=== PATIENT | male | born 1970 | race American Indian/Alaskan Native ===

== ENCOUNTER 2017-07-07 23:09 | Emergency (ER) | payer OTHER ==
[2017-07-08] MEDS ORDERED: ZOFRAN ODT PO ONE (00:40)
[2017-07-08] MEDS ORDERED: ZOFRAN ODT ONE (00:44)
[2017-07-08 01:07] LABS: Basophils % (Auto) 0.4 % (0.0-1.8); Hemoglobin 16.9 gm/dl (11.8-15.2); Lymphocytes # (Auto) 0.9 K/mm3 (1.2-5.4); Lymphocytes % (Auto) 10.6 % (13.4-35.0); Mean Corpuscular HGB Conc 34 % (32-34); Mean Corpuscular Hemoglobin 33 pg (28-32); Mean Corpuscular Volume 95 fl (84-94); Monocytes # (Auto) 0.2 K/mm3 (0.0-0.8); Monocytes % (Auto) 2.6 % (0.0-7.3); Platelet Count 227 K/mm3 (140-440); Red Blood Count 5.16 M/mm3 (3.65-5.03)
[2017-07-08 01:30] LABS: Alanine Aminotransferase 18 units/L (7-56); Albumin 4.8 g/dL (3.9-5); BUN/Creatinine Ratio 21; Blood Urea Nitrogen 17 mg/dL (9-20); Calcium 9.5 mg/dL (8.4-10.2); Hemolysis Index 18
[2017-07-08 03:24] LABS: Bilirubin,Urine NEG (Negative); Blood,Urine NEG (Negative); Color,Urine Yellow (Yellow); Mucus,Urine FEW /HPF; Urobilinogen,Urine < 2.0 mg/dL (<2.0)
[2017-07-08] MEDS ORDERED: ZOFRAN IV ONE ×2 (07:15→09:07)
[2017-07-08] MEDS ORDERED: TYLENOL PO ONE (08:40)
[2017-07-08] MEDS ORDERED: MOTRIN PO ONE (08:40)
[2017-07-08] MEDS ORDERED: PHENERGAN PO ONE (08:40)
[2017-07-08] MEDS ORDERED: NACL 0.9% 1000 ML 1,000 ML IV ONE (08:58)
[2017-07-08] MEDS ORDERED: NACL 0.9% 500 ML 1,000 ML IV ONE (09:07)
[2017-07-08] MEDS ORDERED: TORADOL IV ONE (09:07)
[2017-07-08 10:01] VITALS: BP 143/78
--- NOTE | 2017-07-08 10:08 | Emergency Department Report ---
ED N/V/D HPI - General Chief complaint: Abdominal Pain Stated complaint: STOMACH PAIN Time Seen by Provider: 07/08/17 08:26 Source: patient Mode of arrival: Ambulatory Limitations: No Limitations - History of Present Illness Initial comments: Patient ate something yesterday that upset her stomach. Has had vomiting and diarrhea ever since. He came to the ER because people said he looked dehydrated. He has not been keeping anything down. He also is having abdominal cramping. - Related Data Previous Rx's Medication Instructions Recorded Last Taken Type Ondansetron [Zofran TAB] 4 mg PO Q8HR PRN #10 tablet 07/08/17 Unknown Rx Allergies Allergy/AdvReac Type Severity Reaction Status Date / Time No Known Allergies Allergy Unverified 07/08/17 00:43 ED Review of Systems ROS: Stated complaint: STOMACH PAIN Other details as noted in HPI Comment: All other systems reviewed and negative Gastrointestinal: abdominal pain, nausea, vomiting, diarrhea ED Past Medical Hx - Past Medical History Previous Medical History?: No - Surgical History Past Surgical History?: No - Social History Smoking Status: Never Smoker Substance Use Type: None - Medications Home Medications: Home Medications Medication Instructions Recorded Confirmed Last Taken Type Ondansetron [Zofran TAB] 4 mg PO Q8HR PRN #10 tablet 07/08/17 Unknown Rx ED Physical Exam - General Limitations: No Limitations General appearance: alert, in no apparent distress - Head Head exam: Present: atraumatic, normocephalic - Eye Eye exam: Present: normal appearance - ENT ENT exam: Present: mucous membranes moist - Neck Neck exam: Present: normal inspection - Respiratory Respiratory exam: Present: normal lung sounds bilaterally. Absent: respiratory distress - Cardiovascular Cardiovascular Exam: Present: regular rate, normal rhythm. Absent: systolic murmur, diastolic murmur, rubs, gallop - GI/Abdominal GI/Abdominal exam: Present: soft, tenderness (mild generalized tenderness) - Rectal Rectal exam: Present: deferred - Extremities Exam Extremities exam: Present: normal inspection, normal capillary refill - Back Exam Back exam: Present: normal inspection - Neurological Exam Neurological exam: Present: alert, oriented X3 - Psychiatric Psychiatric exam: Present: normal affect, normal mood - Skin Skin exam: Present: warm, dry, intact, normal color. Absent: rash ED Course Vital Signs 07/08/17 07/08/17 07/08/17 00:04 00:37 04:43 Temperature 99.0 F 99 F Pulse Rate 50 L 55 L Respiratory 18 18 Rate Blood Pressure 163/90 163/90 Blood Pressure [Left] O2 Sat by Pulse 98 100 96 Oximetry 07/08/17 07/08/17 07/08/17 04:45 04:50 04:51 Temperature 99.7 F H Pulse Rate Respiratory 18 Rate Blood Pressure 170/95 Blood Pressure [Left] O2 Sat by Pulse 97 99 Oximetry 07/08/17 07/08/17 07/08/17 05:00 05:15 05:30 Temperature Pulse Rate Respiratory Rate Blood Pressure 177/94 177/94 175/88 Blood Pressure [Left] O2 Sat by Pulse 94 95 95 Oximetry 07/08/17 07/08/17 07/08/17 05:45 06:01 06:15 Temperature Pulse Rate Respiratory Rate Blood Pressure 177/94 164/85 175/88 Blood Pressure [Left] O2 Sat by Pulse 94 97 96 Oximetry 07/08/17 07/08/17 06:30 10:00 Temperature Pulse Rate Respiratory 16 Rate Blood Pressure 175/88 Blood Pressure 143/78 [Left] O2 Sat by Pulse 95 100 Oximetry ED Medical Decision Making - Lab Data Result diagrams: 07/08/17 00:54 07/08/17 00:54 - Medical Decision Making 46-year-old male with no significant past medical history that presents with vomiting and diarrhea, and abdominal pain for the past 24 hours. Patient well- appearing. Vitals are stable. Lab work significant for hemoglobin of 17. Likely this is due to hemoconcentration. Patient was given IV fluids and symptom control here. He is able to tolerate oral intake. Patient will be given Zofran to go home with. He has been educated on the clear liquid diet. Clear to discharge. - Differential Diagnosis gastritis, gastroenteritis, appendicitis, cholecystitis, uti Critical care attestation.: If time is entered above; I have spent that time in minutes in the direct care of this critically ill patient, excluding procedure time. ED Disposition Clinical Impression: Gastroenteritis Disposition: DC-01 TO HOME OR SELFCARE Is pt being admited?: No Does the pt Need Aspirin: No Condition: Stable Instructions: Gastroenteritis (ED), Clear Liquid Diet (ED) Additional Instructions: Please follow the clear liquid diet for the next 24 hours. Instructions on this have been attached. Start taking 1000 mg tylenol every 6 hours for the next 3 days for your abdominal pain. Prescriptions: Ondansetron [Zofran TAB] 4 mg PO Q8HR PRN #10 tablet PRN Reason: Nausea Referrals: JUDITH GANDHI MD [Primary Care Provider] - 3-5 Days
== END 2017-07-08 10:30 | disposition home or self-care (01) ==
LOC: ED 23:09
DX: K52.9 Noninfective gastroenteritis and colitis, unspecified (principal)
CPT/HCPCS: 36415; 80053; 81001; 85025; 96361; 96374; 96375; 96376; 99283; J1885; J2405; J7030; Q0162; Q0169

== ENCOUNTER 2018-07-23 03:01 | Emergency (ER) | payer BC ==
[2018-07-23 03:31] LABS: Basophils % (Auto) 0.4 % (0.0-1.8); Eosinophils % (Auto) 0.1 % (0.0-4.3); Hematocrit 50.1 % (35.5-45.6); Hemoglobin 17.3 gm/dl (11.8-15.2); Lymphocytes # (Auto) 1.3 K/mm3 (1.2-5.4); Lymphocytes % (Auto) 11.6 % (13.4-35.0); Mean Corpuscular HGB Conc 35 % (32-34); Mean Corpuscular Volume 94 fl (84-94); Monocytes # (Auto) 0.7 K/mm3 (0.0-0.8); Platelet Count 231 K/mm3 (140-440); Red Blood Count 5.33 M/mm3 (3.65-5.03)
[2018-07-23 04:22] LABS: Alanine Aminotransferase 15 units/L (7-56); Albumin 4.9 g/dL (3.9-5); BUN/Creatinine Ratio 16; Blood Urea Nitrogen 18 mg/dL (9-20); Calcium 9.6 mg/dL (8.4-10.2); Hemolysis Index 21
[2018-07-23 05:29] LABS: Bilirubin,Urine NEG (Negative); Blood,Urine MOD (Negative); Color,Urine Yellow (Yellow); Mucus,Urine 3+ /HPF; Urobilinogen,Urine < 2.0 mg/dL (<2.0)
[2018-07-23] MEDS ORDERED: NACL 0.9% 1000 ML 1,000 ML IV ONE (06:19)
[2018-07-23] MEDS ORDERED: PEPCID IV ONE (06:19)
[2018-07-23] MEDS ORDERED: MORPHINE IV ONE (06:19)
[2018-07-23] MEDS ORDERED: ZOFRAN IV ONE (06:19)
--- NOTE | 2018-07-23 06:20 | Emergency Department Report ---
ED Abdominal Pain HPI - General Chief Complaint: Abdominal Pain Stated Complaint: VOMITING Time Seen by Provider: 07/23/18 06:04 Source: patient Mode of arrival: Ambulatory Limitations: No Limitations - History of Present Illness Initial Comments: This is a 47-year-old gentleman. The patient is not known to this provider previously. He reports that he does not currently have a primary care doctor. He denies a past medical history. He denies past history of abdominal surgeries. He presents to the emergency room with complaints of nausea, vomiting, abdominal pain. He reports that he consumes cannabis at least twice a day. He denies other toxic coingestions. He reports emesis was initially clear, yellow, and red. He denies bright red blood per rectum. He denies testicular pain. He denies irritative, obstructive urinary symptoms. He makes no complaint of headache, neck pain, chest pain. His abdominal pain is diffusely located in the lower abdominal region. It is left lower quadrant, right lower quadrant and suprapubic. It increases with palpation. It decreases with rest. The pain does not radiate anywhere.. MD Complaint: abdominal pain -: Gradual, hour(s) Location: LLQ, RLQ, suprapubic Radiation: none Severity: moderate Quality: cramping Consistency: intermittent Improves With: medication, rest Worsens With: movement Associated Symptoms: nausea, vomiting, diarrhea - Related Data Previous Rx's Medication Instructions Recorded Last Taken Type Ondansetron [Zofran Odt] 4 mg PO Q8HR PRN #10 tab.rapdis 06/12/18 Unknown Rx Dicyclomine [Bentyl] 10 mg PO QID PRN #20 capsule 07/23/18 Unknown Rx Famotidine [Pepcid] 20 mg PO BID #60 tablet 07/23/18 Unknown Rx Metoclopramide [Reglan] 10 mg PO QID PRN #30 tablet 07/23/18 Unknown Rx Promethazine [Phenergan SUPPOS] 50 mg MO Q6H PRN #15 supp.rect 07/23/18 Unknown Rx Allergies Allergy/AdvReac Type Severity Reaction Status Date / Time No Known Allergies Allergy Unverified 07/08/17 00:43 ED Review of Systems ROS: Stated complaint: VOMITING Other details as noted in HPI Constitutional: malaise. denies: fever Eyes: denies: eye discharge ENT: denies: epistaxis Respiratory: denies: cough Cardiovascular: denies: chest pain Gastrointestinal: abdominal pain, nausea, vomiting, diarrhea. denies: melena, hematochezia Genitourinary: denies: dysuria, frequency, testicular pain Musculoskeletal: denies: back pain Skin: denies: lesions Neurological: weakness Psychiatric: anxiety ED Past Medical Hx - Past Medical History Previous Medical History?: No - Surgical History Past Surgical History?: No - Social History Smoking Status: Never Smoker Substance Use Type: None - Medications Home Medications: Home Medications Medication Instructions Recorded Confirmed Last Taken Type Ondansetron [Zofran Odt] 4 mg PO Q8HR PRN #10 tab.rapdis 06/12/18 Unknown Rx Dicyclomine [Bentyl] 10 mg PO QID PRN #20 capsule 07/23/18 Unknown Rx Famotidine [Pepcid] 20 mg PO BID #60 tablet 07/23/18 Unknown Rx Metoclopramide [Reglan] 10 mg PO QID PRN #30 tablet 07/23/18 Unknown Rx Promethazine [Phenergan SUPPOS] 50 mg MO Q6H PRN #15 supp.rect 07/23/18 Unknown Rx ED Physical Exam - General Limitations: No Limitations General appearance: alert, anxious - Head Head exam: Present: atraumatic, normocephalic - Eye Eye exam: Present: normal appearance, EOMI. Absent: nystagmus - ENT ENT exam: Present: normal exam, normal orophraynx, mucous membranes moist, normal external ear exam - Neck Neck exam: Present: normal inspection, full ROM. Absent: tenderness, meningismus - Respiratory Respiratory exam: Present: normal lung sounds bilaterally. Absent: respiratory distress - Cardiovascular Cardiovascular Exam: Present: regular rate, normal rhythm, normal heart sounds. Absent: bradycardia, tachycardia, irregular rhythm, systolic murmur, diastolic murmur, rubs, gallop - GI/Abdominal GI/Abdominal exam: Present: soft, tenderness, other (is mild diffuse lower abdominal tenderness. There is no rebound, guarding or peritoneal sign.). A bsent: distended, guarding, rebound, rigid, pulsatile mass - Rectal Rectal exam: Present: deferred - Extremities Exam Extremities exam: Present: normal inspection, full ROM, other (2+ pulses noted in the bilateral upper, lower extremities. Compartments soft. No long bony tenderness. The pelvis is stable.). Absent: pedal edema, joint swelling, calf tenderness - Back Exam Back exam: Present: normal inspection, full ROM. Absent: tenderness, CVA tenderness (R) - Neurological Exam Neurological exam: Present: alert, other (Extraocular movements intact. Tongue midline. No facial droop. Facial sensation intact to light touch in the V1, V2, V3 distribution bilaterally. 5 and 5 strength in 4 extremities.. Sensation is intact to light touch in 4 extremities.). Absent: motor sensory deficit - Psychiatric Psychiatric exam: Present: normal affect, normal mood, anxious - Skin Skin exam: Present: warm, dry, intact, normal color. Absent: rash ED Course Vital Signs 07/23/18 07/23/18 07/23/18 03:07 05:18 06:48 Temperature 98.9 F 98.8 F Pulse Rate 100 H Respiratory 18 18 18 Rate Blood Pressure 147/82 O2 Sat by Pulse 99 Oximetry 07/23/18 07/23/18 07/23/18 07:52 08:00 08:30 Temperature Pulse Rate Respiratory Rate Blood Pressure 124/69 114/67 O2 Sat by Pulse 99 97 95 Oximetry 07/23/18 09:00 Temperature Pulse Rate Respiratory Rate Blood Pressure 124/69 O2 Sat by Pulse 95 Oximetry - Reevaluation(s) Reevaluation #1: 07/23/18 09:27 At the time of discharge, patient smiling, he reports that feels much better, and endorses motivation to discontinue cannabis consumption. ED Medical Decision Making - Lab Data Result diagrams: 07/23/18 03:15 07/23/18 03:15 Vital Signs 07/23/18 07/23/18 07/23/18 03:07 05:18 06:48 Temperature 98.9 F 98.8 F Pulse Rate 100 H Respiratory 18 18 18 Rate Blood Pressure 147/82 O2 Sat by Pulse 99 Oximetry 07/23/18 07/23/18 07/23/18 07:52 08:00 08:30 Temperature Pulse Rate Respiratory Rate Blood Pressure 124/69 114/67 O2 Sat by Pulse 99 97 95 Oximetry 07/23/18 09:00 Temperature Pulse Rate Respiratory Rate Blood Pressure 124/69 O2 Sat by Pulse 95 Oximetry Lab Results 07/23/18 07/23/18 07/23/18 Range/Units 03:15 03:15 05:18 WBC 11.3 H (4.5-11.0) K/mm3 RBC 5.33 H (3.65-5.03) M/mm3 Hgb 17.3 H (11.8-15.2) gm/dl Hct 50.1 H (35.5-45.6) % MCV 94 (84-94) fl MCH 33 H (28-32) pg MCHC 35 H (32-34) % RDW 13.0 L (13.2-15.2) % Plt Count 231 (140-440) K/mm3 Lymph % (Auto) 11.6 L (13.4-35.0) % [place] % (Auto) 6.0 (0.0-7.3) % Eos % (Auto) 0.1 (0.0-4.3) % Baso % (Auto) 0.4 (0.0-1.8) % Lymph # 1.3 (1.2-5.4) K/mm3 [place] # 0.7 (0.0-0.8) K/mm3 Eos # 0.0 (0.0-0.4) K/mm3 Baso # 0.0 (0.0-0.1) K/mm3 Seg Neutrophils % 81.9 H (40.0-70.0) % Seg Neutrophils # 9.3 H (1.8-7.7) K/mm3 Sodium 138 (137-145) mmol/L Potassium 3.5 L (3.6-5.0) mmol/L Chloride 96.3 L (98-107) mmol/L Carbon Dioxide 25 (22-30) mmol/L Anion Gap 20 mmol/L BUN 18 (9-20) mg/dL Creatinine 1.1 (0.8-1.5) mg/dL Estimated GFR > 60 ml/min BUN/Creatinine Ratio 16 % Glucose 131 H (75-100) mg/dL Calcium 9.6 (8.4-10.2) mg/dL Total Bilirubin 0.60 (0.1-1.2) mg/dL AST 24 (5-40) units/L ALT 15 (7-56) units/L Alkaline Phosphatase 52 (35-129) units/L Total Protein 7.8 (6.3-8.2) g/dL Albumin 4.9 (3.9-5) g/dL Albumin/Globulin Ratio 1.7 % Urine Color Yellow (Yellow) Urine Turbidity Slightly-cloudy (Clear) Urine pH 5.0 (5.0-7.0) Ur Specific Rush 1.026 (1.003-1.030) Urine Protein 100 mg/dl (Negative) mg/dL Urine Glucose (UA) Neg (Negative) mg/dL Urine Ketones Neg (Negative) mg/dL Urine Blood Mod (Negative) Urine Nitrite Neg (Negative) Urine Bilirubin Neg (Negative) Urine Urobilinogen < 2.0 (<2.0) mg/dL Ur Leukocyte Esterase Tr (Negative) Urine WBC (Auto) 23.0 H (0.0-6.0) /HPF Urine RBC (Auto) 3.0 (0.0-6.0) /HPF U Epithel Cells (Auto) 1.0 (0-13.0) /HPF Urine Mucus 3+ /HPF Urine Opiates Screen Urine Methadone Screen Ur Barbiturates Screen Ur Phencyclidine Scrn Ur Amphetamines Screen U Benzodiazepines Scrn Urine Cocaine Screen U Marijuana (THC) Screen Drugs of Abuse Note 07/23/18 Range/Units 05:18 WBC (4.5-11.0) K/mm3 RBC (3.65-5.03) M/mm3 Hgb (11.8-15.2) gm/dl Hct (35.5-45.6) % MCV (84-94) fl MCH (28-32) pg MCHC (32-34) % RDW (13.2-15.2) % Plt Count (140-440) K/mm3 Lymph % (Auto) (13.4-35.0) % [place] % (Auto) (0.0-7.3) % Eos % (Auto) (0.0-4.3) % Baso % (Auto) (0.0-1.8) % Lymph # (1.2-5.4) K/mm3 [place] # (0.0-0.8) K/mm3 Eos # (0.0-0.4) K/mm3 Baso # (0.0-0.1) K/mm3 Seg Neutrophils % (40.0-70.0) % Seg Neutrophils # (1.8-7.7) K/mm3 Sodium (137-145) mmol/L Potassium (3.6-5.0) mmol/L Chloride (98-107) mmol/L Carbon Dioxide (22-30) mmol/L Anion Gap mmol/L BUN (9-20) mg/dL Creatinine (0.8-1.5) mg/dL Estimated GFR ml/min BUN/Creatinine Ratio % Glucose (75-100) mg/dL Calcium (8.4-10.2) mg/dL Total Bilirubin (0.1-1.2) mg/dL AST (5-40) units/L ALT (7-56) units/L Alkaline Phosphatase (35-129) units/L Total Protein (6.3-8.2) g/dL Albumin (3.9-5) g/dL Albumin/Globulin Ratio % Urine Color (Yellow) Urine Turbidity (Clear) Urine pH (5.0-7.0) Ur Specific Rush (1.003-1.030) Urine Protein (Negative) mg/dL Urine Glucose (UA) (Negative) mg/dL Urine Ketones (Negative) mg/dL Urine Blood (Negative) Urine Nitrite (Negative) Urine Bilirubin (Negative) Urine Urobilinogen (<2.0) mg/dL Ur Leukocyte Esterase (Negative) Urine WBC (Auto) (0.0-6.0) /HPF Urine RBC (Auto) (0.0-6.0) /HPF U Epithel Cells (Auto) (0-13.0) /HPF Urine Mucus /HPF Urine Opiates Screen Presumptive negative Urine Methadone Screen Presumptive negative Ur Barbiturates Screen Presumptive negative Ur Phencyclidine Scrn Presumptive negative Ur Amphetamines Screen Presumptive negative U Benzodiazepines Scrn Presumptive negative Urine Cocaine Screen Presumptive negative U Marijuana (THC) Screen Presumptive positive Drugs of Abuse Note Disclamer - EKG Data -: EKG Interpreted by Tn EKG shows normal: sinus rhythm Rate: normal - EKG Data When compared to previous EKG there are: previous EKG unavailable 07/23/18 09:19 This is a normal sinus rhythm, 79 bpm, borderline rightward axis, high left ventricular voltage, atrial enlargement, intervals appear to be unremarkable, this is a nonspecific EKG, it is not consistent with an ST elevation myocardial infarction. - Radiology Data Radiology results: report reviewed, image reviewed Print Report Referring Physician: JUDITH JOY Patient Name: YAMILETH BECKFORD Date of : 1970 Sex: Male Report Date: 2018-07-23 Report Status: Finalized Findings [facility] [address] [place] [address] Cat Scan Report Signed Patient: YAMILETH BECKFORD MR#: [id number] : 1970 Acct:[id number] Age/Sex: 47 / M ADM Date: 07/23/18 Loc: ED Attending Dr: Ordering Physician: JUDITH JOY MD Date of Service: 07/23/18 Procedure(s): CT abdomen pelvis w con Accession Number(s): [id number] cc: JUDITH JOY MD CT ABDOMEN AND PELVIS WITH CONTRAST INDICATION: Lower abdominal pain, nausea, vomiting. Possible cannibinoid hyperemesis versus appendicitis. COMPARISON: 06/12/2018 CT. FINDINGS: Abdomen and pelvis CT performed following intravenous administration of 100 cc of Omnipaque 300. LUNG BASES: Stable slight cardiomegaly. Subtle 0.6 cm thickness pericardial thickening or fluid anteriorly as on axial series 2, image 12 may though be new. Nonspecific distal esophageal wall prominence/thickening, not excluded for gastroesophageal reflux and/or hiatal hernia, amongst others. Right hemidiaphragm again approximately 2 cm higher than the left. ABDOMEN: Multiple subcentimeter, indeterminate hepatic hypodensities towards the dome as on axial images 23-35, amongst others, the largest 0.7 cm on axial image 31 again noted. Right hepatic lobe 17.3 cm in midclavicular line. Otherwise unremarkable liver, spleen, gallbladder, nonane urysmal abdominal aorta with few atherosclerotic calcifications, IVC and kidneys. Diffuse bilateral adrenal enlargement/hyperplasia. No ascites or size significant adenopathy. Nonopacified GI tract evaluation limited, though grossly nonobstructive. Normal appendix. Mild hyperdense ascending colon content incidentally noted with usual stool burden. PELVIS: Unremarkable urinary bladder and nonopacified rectosigmoid. Grossly stable somewhat prominent seminal vesicles and prostate that may also be correlated for clinically and with PSA. No free fluid or size significant adenopathy. Mild multilevel spinal degenerative changes as spurring and few endplate irregularities, more so lower thoracic. Bilateral hip degenerative changes with acetabular hypertrophy/possible increased propensity for pincer type femoroacetabular impingement. Please correlate. CONCLUSION: No acute significant abdomen or p luciano CT abnormality with various other findings, as detailed above. Please correlate. Thank you for the opportunity to participate in this patient's care. Transcribed By: RS Dictated By: RON YORK MD Electronically Authenticated By: RON YORK MD Signed Date/Time: 07/23/18743 DD/ 7 TD/TT: 07/23/18743 - Medical Decision Making Differential diagnosis, including not limited to: GERD, gastritis, hiatal hernia, cyclic vomiting syndrome, narcotic bowel syndrome, inflammatory bowel disease, cannabinoid hyperemesis syndrome, irritable bowel syndrome Assessment and plan: 47-year-old gentleman with nausea and vomiting, possible components of Yoon-Lama tear, with daily cannabis consumption, likely cannabinoid hyperemesis syndrome. Patient treated with fluids, medications, and pain medications. He feels improved. He is tolerating liquid feeds. I have advised the patient to discontinue cannabis consumption. He will be discharged with nonnarcotic pain medication, nausea medication, and he will be instructed to follow-up with outpatient gastroenterology to complete his workup. Critical care attestation.: If time is entered above; I have spent that time in minutes in the direct care of this critically ill patient, excluding procedure time. ED Disposition Clinical Impression: Abdominal pain, History of nausea and vomiting Disposition: - TO HOME OR SELFCARE Is pt being admited?: No Does the pt Need Aspirin: No Condition: Good Instructions: Gastroenteritis (ED) Additional Instructions: As we discussed, symptoms likely coming from excessive cannabis consumption, likely causing cannabinoid hyperemesis syndrome. I recommend immediate discontinuation of cannabis, marijuana consumption. Avoid consumption of Motrin, ibuprofen, Naprosyn, Aleve, heavy, spicy foods. Advance diet as tolerated, take the pain medications as needed/directed, take Reglan medication as needed for nausea, vomiting, and if still having symptoms after Reglan, take the Phenergan suppository as recommended. I recommend that the patient follow up with a gastroenterology specialist within the next month for further evaluation. Avoid consumption of alcohol. Please return to the emergency room right away with new pain, worsening pain, migration of pain, projectile vomiting, change in mental status, confusion, inability to tolerate liquid feeds, new, worsening or different symptoms. Prescriptions: Dicyclomine [Bentyl] 10 mg PO QID PRN #20 capsule PRN Reason: Pain Famotidine [Pepcid] 20 mg PO BID #60 tablet Promethazine [Phenergan SUPPOS] 50 mg MO Q6H PRN #15 supp.rect PRN Reason: Nausea Metoclopramide [Reglan] 10 mg PO QID PRN #30 tablet PRN Reason: Nausea Referrals: [facility] [Provider Group] - 3-5 Days
[2018-07-23 06:44] LABS: Amphetamine Screen,Urine PRESUMPTIVE NEGATIVE; Benzodiazepines Screen,Urine PRESUMPTIVE NEGATIVE; Cocaine Screen,Urine PRESUMPTIVE NEGATIVE; Methadone Screen,Urine PRESUMPTIVE NEGATIVE; Opiate Screen,Urine PRESUMPTIVE NEGATIVE
[2018-07-23 07:14] LABS: Cannabinoid Screen,Urine PRESUMPTIVE POSITIVE
[2018-07-23] MEDS ORDERED: CARAFATE PO ONE (07:15)
[2018-07-23] MEDS ORDERED: TYLENOL PO ONE (07:15)
--- NOTE | 2018-07-23 07:44 | Cat Scan Report ---
CT ABDOMEN AND PELVIS WITH CONTRAST INDICATION: Lower abdominal pain, nausea, vomiting. Possible cannibinoid hyperemesis versus appendicitis. COMPARISON: 06/12/2018 CT. FINDINGS: Abdomen and pelvis CT performed following intravenous administration of 100 cc of Omnipaque 300. LUNG BASES: Stable slight cardiomegaly. Subtle 0.6 cm thickness pericardial thickening or fluid anteriorly as on axial series 2, image 12 may though be new. Nonspecific distal esophageal wall prominence/thickening, not excluded for gastroesophageal reflux and/or hiatal hernia, amongst others. Right hemidiaphragm again approximately 2 cm higher than the left. ABDOMEN: Multiple subcentimeter, indeterminate hepatic hypodensities towards the dome as on axial images 23-35, amongst others, the largest 0.7 cm on axial image 31 again noted. Right hepatic lobe 17.3 cm in midclavicular line. Otherwise unremarkable liver, spleen, gallbladder, nonaneurysmal abdominal aorta with few atherosclerotic calcifications, IVC and kidneys. Diffuse bilateral adrenal enlargement/hyperplasia. No ascites or size significant adenopathy. Nonopacified GI tract evaluation limited, though grossly nonobstructive. Normal appendix. Mild hyperdense ascending colon content incidentally noted with usual stool burden. PELVIS: Unremarkable urinary bladder and nonopacified rectosigmoid. Grossly stable somewhat prominent seminal vesicles and prostate that may also be correlated for clinically and with PSA. No free fluid or size significant adenopathy. Mild multilevel spinal degenerative changes as spurring and few endplate irregularities, more so lower thoracic. Bilateral hip degenerative changes with acetabular hypertrophy/possible increased propensity for pincer type femoroacetabular impingement. Please correlate. CONCLUSION: No acute significant abdomen or pelvis CT abnormality with various other findings, as detailed above. Please correlate. Thank you for the opportunity to participate in this patient's care.
[2018-07-23 09:08] VITALS: BP 124/69
== END 2018-07-23 09:45 | disposition home or self-care (01) ==
LOC: ED 03:01
DX: R10.32 Left lower quadrant pain (principal); R10.31 Right lower quadrant pain; R11.2 Nausea with vomiting, unspecified; R19.7 Diarrhea, unspecified
CPT/HCPCS: 36415; 74177; 80053; 80307; 81001; 85025; 93005; 93010; 96361; 96374; 96375; 99284; J2270; J2405; J7030; Q9967

== ENCOUNTER 2018-10-20 05:59 | Emergency (ER) | payer BC ==
[2018-10-20] MEDS ORDERED: ZOFRAN ODT ONE (06:22)
[2018-10-20 06:23] VITALS: BP 169/104
[2018-10-20] MEDS ORDERED: ZOFRAN ODT PO ONE (06:23)
[2018-10-20 06:50] LABS: Basophils % (Auto) 0.4 % (0.0-1.8); Hematocrit 45.7 % (35.5-45.6); Hemoglobin 15.7 gm/dl (11.8-15.2); Lymphocytes # (Auto) 1.1 K/mm3 (1.2-5.4); Lymphocytes % (Auto) 10.4 % (13.4-35.0); Mean Corpuscular HGB Conc 34 % (32-34); Mean Corpuscular Volume 95 fl (84-94); Monocytes # (Auto) 0.5 K/mm3 (0.0-0.8); Monocytes % (Auto) 4.4 % (0.0-7.3); Platelet Count 223 K/mm3 (140-440); Red Blood Count 4.82 M/mm3 (3.65-5.03)
[2018-10-20] MEDS ORDERED: ZOFRAN IV STA (07:03)
[2018-10-20] MEDS ORDERED: LEVSIN SL SL ONE (07:03)
[2018-10-20] MEDS ORDERED: NACL 0.9% 1000 ML 1,000 ML IV ONE (07:03)
--- NOTE | 2018-10-20 07:03 | Emergency Department Report ---
Blank Doc - Documentation Documentation: [id number] male, [facility] emerge department complaining of abdominal pain, nausea and vomiting started yesterday late afternoon. Around 12:00 known. He ate chicken nuggets and shortly after began to have some symptoms. His also was queasy, but she does not have the vomiting. He states he been vomiting some blood-tinged contents as well but no sylvie blood. He has 2-3 episodes of diarrhea since then diffuse stomach pain. Plan as And labs and give him some medication for his his discomfort. We'll evaluate him for diverticulitis as he does not feel these come in contact with any sick individuals or 4 reports
[2018-10-20 07:13] LABS: Alanine Aminotransferase 13 units/L (7-56); Albumin 4.7 g/dL (3.9-5); BUN/Creatinine Ratio 14; Blood Urea Nitrogen 14 mg/dL (9-20); Calcium 9.6 mg/dL (8.4-10.2); Hemolysis Index 16
[2018-10-20] MEDS ORDERED: MORPHINE IV ONE (07:40)
--- NOTE | 2018-10-20 07:40 | Emergency Department Report ---
ED Abdominal Pain HPI - General Chief Complaint: Abdominal Pain Stated Complaint: VOMITING Time Seen by Provider: 10/20/18 07:22 Source: patient Mode of arrival: Ambulatory Limitations: No Limitations - History of Present Illness Initial Comments: 48-year-old -[place] male presents to the emergency room for abdominal pain yesterday late afternoon approximately 12 PM. Patient reports that he ate the chicken nuggets A after that he started to nauseated vomited straight below and diarrhea. Patient reports that his had become queasy but has not vomited or had diarrhea. Patient denies any frothy blood in vomitus. MD Complaint: abdominal pain -: Last night Location: [facility] Radiation: none Migration to: no migration Severity scale (0 -10): 8 Quality: stabbing, aching Consistency: constant Context: possible food poisoning Associated Symptoms: nausea, vomiting, diarrhea - Related Data Previous Rx's Medication Instructions Recorded Last Taken Type Dicyclomine [Bentyl] 10 mg PO QID PRN #20 capsule 07/23/18 Unknown Rx Famotidine [Pepcid] 20 mg PO BID #60 tablet 07/23/18 Unknown Rx Metoclopramide [Reglan] 10 mg PO QID PRN #30 tablet 07/23/18 Unknown Rx Promethazine [Phenergan SUPPOS] 50 mg ME Q6H PRN #15 supp.rect 07/23/18 Unknown Rx Ciprofloxacin HCl [Ciprofloxacin 500 mg PO Q12HR 7 Days #14 tab 10/20/18 Unknown Rx TAB] Ondansetron [Zofran ODT TAB] 4 mg PO Q8HR PRN #10 tab.rapdis 10/20/18 Unknown Rx metroNIDAZOLE [Flagyl] 500 mg PO Q8HR 7 Days #21 tablet 10/20/18 Unknown Rx Allergies Allergy/AdvReac Type Severity Reaction Status Date / Time No Known Allergies Allergy Unverified 07/08/17 00:43 ED Review of Systems ROS: Stated complaint: VOMITING Other details as noted in HPI Comment: All other systems reviewed and negative ED Past Medical Hx - Past Medical History Previous Medical History?: No - Surgical History Past Surgical History?: No - Social History Smoking Status: Never Smoker Substance Use Type: None - Medications Home Medications: Home Medications Medication Instructions Recorded Confirmed Last Taken Type Dicyclomine [Bentyl] 10 mg PO QID PRN #20 capsule 07/23/18 Unknown Rx Famotidine [Pepcid] 20 mg PO BID #60 tablet 07/23/18 Unknown Rx Metoclopramide [Reglan] 10 mg PO QID PRN #30 tablet 07/23/18 Unknown Rx Promethazine [Phenergan SUPPOS] 50 mg ME Q6H PRN #15 supp.rect 07/23/18 Unknown Rx Ciprofloxacin HCl [Ciprofloxacin 500 mg PO Q12HR 7 Days #14 tab 10/20/18 Unknown Rx TAB] Ondansetron [Zofran ODT TAB] 4 mg PO Q8HR PRN #10 tab.rapdis 10/20/18 Unknown Rx metroNIDAZOLE [Flagyl] 500 mg PO Q8HR 7 Days #21 tablet 10/20/18 Unknown Rx ED Physical Exam - General Limitations: No Limitations General appearance: alert, in no apparent distress - Head Head exam: Present: atraumatic, normocephalic - Eye Eye exam: Present: normal appearance - ENT ENT exam: Present: mucous membranes moist - Neck Neck exam: Present: normal inspection - Respiratory Respiratory exam: Present: normal lung sounds bilaterally. Absent: respiratory distress - Cardiovascular Cardiovascular Exam: Present: regular rate, normal rhythm. Absent: systolic murmur, diastolic murmur, rubs, gallop - GI/Abdominal GI/Abdominal exam: Present: soft, normal bowel sounds - Rectal Rectal exam: Present: deferred - Extremities Exam Extremities exam: Present: normal inspection - Back Exam Back exam: Present: normal inspection - Neurological Exam Neurological exam: Present: alert, oriented X3 - Psychiatric Psychiatric exam: Present: normal affect, normal mood - Skin Skin exam: Present: warm, dry, intact, normal color. Absent: rash ED Course Vital Signs 10/20/18 06:13 Temperature 99.3 F Pulse Rate 67 Respiratory 20 Rate Blood Pressure 169/104 O2 Sat by Pulse 98 Oximetry ED Medical Decision Making - Lab Data Result diagrams: 10/20/18 06:39 10/20/18 06:39 - Radiology Data Radiology results: report reviewed Patient: YAMILETH BECKFORD MR#: [id number] : 1970 Acct:[id number] Age/Sex: 48 / M ADM Date: 10/20/18 Loc: ED Attending Dr: Ordering Physician: BENJAMIN RENEE Date of Service: 07/29/19 Procedure(s): CT abdomen pelvis w con Accession Number(s): [id number] cc: BENJAMIN RENEE CT ABDOMEN AND PELVIS WITH CONTRAST HISTORY: Lower ABD Pain COMPARISON: None. TECHNIQUE: Axial CT images were obtained through the abdomen and pelvis after 10 0 cc of Omnipaque 300 intravenously. Sagittal and coronal reformatted images. All CT scans at this location are perfo rmed using CT dose reduction for ALARA by means of automated exposure control. FINDINGS: CT ABDOMEN: Lung Bases: Clear. Liver: No significant abnormality. There are a few tiny cysts in the anterior liver measuring up to 1 cm. Biliary: No significant abnormality. Spleen: No significant abnormality. Unenlarged. Pancreas: No significant abnormality. Adrenals: No significant abnormality. Kidneys: No significant abnormality. Lymphatics: No lymphadenopathy. Vasculature: No significant abnormality. Minimal calcific plaques are noted in the distal aorta and proximal common iliac arteries Bowel/Peritoneum: There is a focal area of mild circumferential thickening in t he sigmoid colon. There are a few diverticula identified in this area. No evidence for advanced inflammation, abscess or free air. Normal appendix. CT PELVIS: : No significant abnormality. Osseous Structures: No significant abnormality. Additional Findings: None IMPRESSION: Focal area of circumferential thickening in the sigmoid colon with minimal diverticulosis. Consider a very early diverticulitis or focal colitis. Signer Name: Marcelo Diallo Jr, MD Signed: 10/20/2018 8:24 AM Workstation Name: [id number] Transcribed By: TTR Dictated By: MARCELO DIALLO JR, MD Electronically Authenticated By: MARCELO DIALLO JR, MD Signed Date/Time: 10/20/18823 DD/ 7 TD/TT: - Medical Decision Making 48-year-old -[place] male presents to the emergency room for abdominal pain yesterday late afternoon approximately 12 PM. Patient reports that he ate the chicken nuggets A after that he started to nauseated vomited straight below and diarrhea. Patient reports that his had become queasy but has not vomited or had diarrhea. Patient denies any frothy blood in vomitus. CT comes back with thickening of the colon with possible diverticulosis consider early diverticulitis. Patient will be treated with Flagyl and Cipro. Patient referred to GI. Critical care attestation.: If time is entered above; I have spent that time in minutes in the direct care of this critically ill patient, excluding procedure time. ED Disposition Clinical Impression: Colitis Disposition: DC-01 TO HOME OR SELFCARE Is pt being admited?: No Does the pt Need Aspirin: No Condition: Stable Instructions: Infectious Colitis (ED) Additional Instructions: Complete antibiotics as prescribed. Take Zofran as needed for nausea and vomiting. Follow up with her society reporter specialist are listed one below for your convenience. Prescriptions: Ciprofloxacin HCl [Ciprofloxacin TAB] 500 mg PO Q12HR 7 Days #14 tab metroNIDAZOLE [Flagyl] 500 mg PO Q8HR 7 Days #21 tablet Ondansetron [Zofran ODT TAB] 4 mg PO Q8HR PRN #10 tab.rapdis PRN Reason: Vomiting Referrals: [facility] [Provider Group] - 3-5 Days Forms: Work/School Release Form(ED), Accompanied Note
--- NOTE | 2018-10-20 08:29 | Cat Scan Report ---
CT ABDOMEN AND PELVIS WITH CONTRAST HISTORY: Lower ABD Pain COMPARISON: None. TECHNIQUE: Axial CT images were obtained through the abdomen and pelvis after 100 cc of Omnipaque 300 intravenously. Sagittal and coronal reformatted images. All CT scans at this location are performed using CT dose reduction for ALARA by means of automated exposure control. FINDINGS: CT ABDOMEN: Lung Bases: Clear. Liver: No significant abnormality. There are a few tiny cysts in the anterior liver measuring up to 1 cm. Biliary: No significant abnormality. Spleen: No significant abnormality. Unenlarged. Pancreas: No significant abnormality. Adrenals: No significant abnormality. Kidneys: No significant abnormality. Lymphatics: No lymphadenopathy. Vasculature: No significant abnormality. Minimal calcific plaques are noted in the distal aorta and p roximal common iliac arteries Bowel/Peritoneum: There is a focal area of mild circumferential thickening in the sigmoid colon. Ther e are a few diverticula identified in this area. No evidence for advanced inflammation, abscess or fr ee air. Normal appendix. CT PELVIS: : No significant abnormality. Osseous Structures: No significant abnormality. Additional Findings: None IMPRESSION: Focal area of circumferential thickening in the sigmoid colon with minimal diverticulosis. Consider a very early diverticulitis or focal colitis. Signer Name: Marcelo Virgen Jr, MD Signed: 10/20/2018 8:24 AM Workstation Name: [id number]
== END 2018-10-20 09:24 | disposition home or self-care (01) ==
LOC: ED 05:59
DX: K52.9 Noninfective gastroenteritis and colitis, unspecified (principal); Z79.899 Other long term (current) drug therapy
CPT/HCPCS: 36415; 74177; 80053; 83690; 85025; 96361; 96374; 96375; 99284; J2270; J2405; J7030; Q9967; Q0162

== ENCOUNTER 2019-02-23 17:21 | Emergency (ER) | payer BC ==
[2019-02-23] MEDS ORDERED: ONDANSETRON 4 MG ODT TAB PO ONE (17:42)
--- NOTE | 2019-02-23 17:42 | Emergency Department Report ---
Blank Doc - Documentation Documentation: 48-year-old male that presents with abdominal pain with n/v. This initial assessment/diagnostic orders/clinical plan/treatment(s) is/are subject to change based on patient's health status, clinical progression and re- assessment by fellow clinical providers in the ED. Further treatment and workup at subsequent clinical providers discretion. Patient/guardians urged not to elope from the ED as their condition may be serious if not clinically assessed and managed. Initial orders include: 1- Patient sent to [facility] for further evaluation and treatment 2- labs 3- UA
[2019-02-23] MEDS ORDERED: ONDANSETRON 4 MG ODT TAB ONE (17:44)
[2019-02-23 19:02] LABS: Basophils % (Auto) 0.4 % (0.0-1.8); Hematocrit 47.1 % (35.5-45.6); Hemoglobin 16.2 gm/dl (11.8-15.2); Lymphocytes % (Auto) 10.1 % (13.4-35.0); Mean Corpuscular HGB Conc 34 % (32-34); Mean Corpuscular Volume 95 fl (84-94); Monocytes # (Auto) 0.4 K/mm3 (0.0-0.8); Monocytes % (Auto) 4.4 % (0.0-7.3); Platelet Count 229 K/mm3 (140-440); Red Blood Count 4.97 M/mm3 (3.65-5.03); Red Cell Distribution Width 12.6 % (13.2-15.2)
[2019-02-23 19:54] LABS: Alanine Aminotransferase 13 units/L (7-56); BUN/Creatinine Ratio 12; Blood Urea Nitrogen 12 mg/dL (9-20); Calcium 9.8 mg/dL (8.4-10.2); Hemolysis Index 31
[2019-02-23 21:21] LABS: Bilirubin,Urine NEG (Negative); Color,Urine Yellow (Yellow)
[2019-02-23 21:22] LABS: Blood,Urine SM (Negative); Mucus,Urine 1+ /HPF
[2019-02-23] MEDS ORDERED: SODIUM CHLORIDE 0.9% 1000 ML 1,000 ML IV ONE ×2 (21:44)
[2019-02-23] MEDS ORDERED: MORPHINE 4 MG/1 ML INJ IV ONE (21:45)
[2019-02-23] MEDS ORDERED: LORazepam 2 MG/ML VIAL IV ONE (21:45)
[2019-02-23] MEDS ORDERED: ONDANSETRON 4 MG/2 ML INJ IV ONE (21:45)
--- NOTE | 2019-02-23 21:52 | Emergency Department Report ---
ED Abdominal Pain HPI - General Chief Complaint: Abdominal Pain Stated Complaint: VOMIT Time Seen by Provider: 02/23/19 17:41 Source: patient Mode of arrival: Ambulatory Limitations: No Limitations - History of Present Illness Initial Comments: Mr. Benton is a 48 yo male with hx of marijuana use who presents with abdominal pain and vomiting for the past 2 days. Has had 5 ED visits over the course of 1.5 years to this ER for similar symptoms according to EMR. PRevious diagnoses include IBS, cannabinoid hyperemesis syndrome, diverticulitis. He co ntinues to smoke marijuana daily. He has central sharp achy crampy 8 out of 10 abdominal pain without radiation. He has severe nausea vomiting. No other significant past medical history. No known history of hypertension or diabetes. His significant other is at the bedside. She provided additional medical history. When he was diagnosed with diverticulitis in September, the prescription was lost. His symptoms resolved without antibiotic therapy. 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 According to electronic medical record he has had 3 CT scans of the abdomen and pelvis this year. The first 2 studies did not reveal any acute findings. The third most recent CT scan revealed focal small area of possible colitis versus diverticulitis. MD Complaint: abdominal pain -: Gradual, days(s) (2) Location: diffuse Radiation: none Severity: severe Severity scale (0 -10): 8 Quality: cramping, aching Consistency: constant Improves With: nothing Worsens With: nothing Context: other (5 ED visits for recurrent abdominal pain since June 2017) Associated Symptoms: nausea, vomiting - Related Data Previous Rx's Medication Instructions Recorded Last Taken Type Dicyclomine [Bentyl] 10 mg PO QID PRN #20 capsule 07/23/18 Unknown Rx Famotidine [Pepcid] 20 mg PO BID #60 tablet 07/23/18 Unknown Rx Metoclopramide [Reglan] 10 mg PO QID PRN #30 tablet 07/23/18 Unknown Rx Promethazine [Phenergan SUPPOS] 50 mg DC Q6H PRN #15 supp.rect 07/23/18 Unknown Rx Ciprofloxacin HCl [Ciprofloxacin 500 mg PO Q12HR 7 Days #14 tab 10/20/18 Unknown Rx TAB] Ondansetron [Zofran ODT TAB] 4 mg PO Q8HR PRN #10 tab.rapdis 10/20/18 Unknown Rx metroNIDAZOLE [Flagyl] 500 mg PO Q8HR 7 Days #21 tablet 10/20/18 Unknown Rx Promethazine [Phenergan] 25 mg PO Q6HR PRN #10 tab 02/24/19 Unknown Rx Allergies Allergy/AdvReac Type Severity Reaction Status Date / Time No Known Allergies Allergy Unverified 07/08/17 00:43 ED Review of Systems ROS: Stated complaint: VOMIT Other details as noted in HPI Comment: All other systems reviewed and negative Constitutional: denies: fever, malaise Cardiovascular: denies: chest pain Gastrointestinal: abdominal pain, nausea, vomiting ED Past Medical Hx - Past Medical History Previous Medical History?: No - Surgical History Past Surgical History?: No - Social History Smoking Status: Never Smoker Substance Use Type: Marijuana - Medications Home Medications: Home Medications Medication Instructions Recorded Confirmed Last Taken Type Dicyclomine [Bentyl] 10 mg PO QID PRN #20 capsule 07/23/18 Unknown Rx Famotidine [Pepcid] 20 mg PO BID #60 tablet 07/23/18 Unknown Rx Metoclopramide [Reglan] 10 mg PO QID PRN #30 tablet 07/23/18 Unknown Rx Promethazine [Phenergan SUPPOS] 50 mg DC Q6H PRN #15 supp.rect 07/23/18 Unknown Rx Ciprofloxacin HCl [Ciprofloxacin 500 mg PO Q12HR 7 Days #14 tab 10/20/18 Unknown Rx TAB] Ondansetron [Zofran ODT TAB] 4 mg PO Q8HR PRN #10 tab.rapdis 10/20/18 Unknown Rx metroNIDAZOLE [Flagyl] 500 mg PO Q8HR 7 Days #21 tablet 10/20/18 Unknown Rx Promethazine [Phenergan] 25 mg PO Q6HR PRN #10 tab 02/24/19 Unknown Rx ED Physical Exam - General Limitations: No Limitations General appearance: alert, in no apparent distress, other (appears uncomfortable appears in pain) - Head Head exam: Present: atraumatic, normocephalic - Eye Eye exam: Present: normal appearance - ENT ENT exam: Present: mucous membranes dry - Neck Neck exam: Present: normal inspection, full ROM - Respiratory Respiratory exam: Present: normal lung sounds bilaterally. Absent: respiratory distress, wheezes - Cardiovascular Cardiovascular Exam: Present: regular rate, normal rhythm, normal heart sounds. Absent: systolic murmur, diastolic murmur, rubs, gallop - GI/Abdominal GI/Abdominal exam: Present: soft, normal bowel sounds. Absent: distended, tenderness, guarding - Rectal Rectal exam: Present: deferred - Extremities Exam Extremities exam: Present: normal inspection - Neurological Exam Neurological exam: Present: alert, oriented X3 - Psychiatric Psychiatric exam: Present: normal affect, normal mood - Skin Skin exam: Present: warm, dry, intact, normal color. Absent: rash ED Course Vital Signs 02/23/19 02/23/19 02/23/19 17:40 21:05 22:00 Temperature 98.6 F 99.2 F Pulse Rate 68 56 L 52 L Respiratory 20 16 14 Rate Blood Pressure 118/49 177/98 Blood Pressure 166/70 [Left] O2 Sat by Pulse 100 100 100 Oximetry 02/23/19 02/23/19 02/23/19 22:07 22:16 22:37 Temperature Pulse Rate 54 L Respiratory 18 20 18 Rate Blood Pressure 156/78 Blood Pressure [Left] O2 Sat by Pulse 96 Oximetry 02/23/19 02/23/19 23:16 23:30 Temperature Pulse Rate 61 57 L Respiratory 25 H 24 Rate Blood Pressure 168/76 156/81 Blood Pressure [Left] O2 Sat by Pulse 97 97 Oximetry ED Medical Decision Making - Lab Data Result diagrams: 02/23/19 18:11 02/23/19 18:11 Laboratory Results - last 24 hr 02/23/19 02/23/19 02/23/19 18:11 18:11 20:55 WBC 10.2 RBC 4.97 Hgb 16.2 H Hct 47.1 H MCV 95 H MCH 33 H MCHC 34 RDW 12.6 L Plt Count 229 Lymph % (Auto) 10.1 L [place] % (Auto) 4.4 Eos % (Auto) 0.0 Baso % (Auto) 0.4 Lymph # 1.0 L [place] # 0.4 Eos # 0.0 Baso # 0.0 Seg Neutrophils % 85.1 H Seg Neutrophils # 8.7 H Sodium 142 Potassium 4.4 Chloride 102.7 Carbon Dioxide 25 Anion Gap 19 BUN 12 Creatinine 1.0 Estimated GFR > 60 BUN/Creatinine Ratio 12 Glucose 108 H Calcium 9.8 Total Bilirubin 0.80 AST 20 ALT 13 Alkaline Phosphatase 55 Total Protein 7.3 Albumin 5.0 Albumin/Globulin Ratio 2.2 Lipase 10 L Urine Color Yellow Urine Turbidity Clear Urine pH 7.0 Ur Specific [place] 1.018 Urine Protein 100 mg/dl Urine Glucose (UA) Neg Urine Ketones 80 Urine Blood Sm Urine Nitrite Neg Urine Bilirubin Neg Urine Urobilinogen 2.0 Ur Leukocyte Esterase Tr Urine WBC (Auto) 7.0 H Urine RBC (Auto) 7.0 U Epithel Cells (Auto) 1.0 Urine Mucus 1+ - Medical Decision Making Mr. Benton presents with abdominal pain: No evidence of peritonitis or dissection on clinical exam today. Differential diagnosis includes IBS, cannabinoid hyperemesis syndrome, PUD Obvious dehydration with lab studies obtained: Hemoconcentration with increase hemoglobin and hematocrit, ketonuria on urinalysis Critical care attestation.: If time is entered above; I have spent that time in minutes in the direct care of this critically ill patient, excluding procedure time. ED Disposition Clinical Impression: Abdominal pain, Dehydration Disposition: DC-01 TO HOME OR SELFCARE Is pt being admited?: No Does the pt Need Aspirin: No Condition: Stable Instructions: Abdominal Pain (ED), Dehydration (ED) Prescriptions: Promethazine [Phenergan] 25 mg PO Q6HR PRN #10 tab PRN Reason: Nausea Referrals: BRAD MAZARIEGOS MD [Staff Physician] - 3-5 Days Forms: Work/School Release Form(ED), Accompanied Note
[2019-02-24 03:53] VITALS: BP 146/71
== END 2019-02-24 00:40 | disposition home or self-care (01) ==
LOC: ED 17:21
DX: E86.0 Dehydration (principal); F12.10 Cannabis abuse, uncomplicated; Z79.899 Other long term (current) drug therapy
CPT/HCPCS: 36415; 80053; 81001; 83690; 85025; 96361; 96374; 96375; 99283; J2060; J2270; J2405; J7030; Q0162

== ENCOUNTER 2020-11-17 14:27 | Emergency (ER) | payer SELFPAY ==
[2020-11-17] MEDS ORDERED: ONDANSETRON 4 MG/2 ML INJ IM ONE (16:14)
--- NOTE | 2020-11-17 16:14 | Event Note ---
ED Screening Note ED Screening Note: vomiting/diarrhea that began last night abd cramping no fever no sick contact no recent abx no water from different source or camping has had symptoms before +former marijuana PMHx none no allergies to meds This initial assessment/diagnostic orders/clinical plan/treatment(s) is/are subject to change based on patients health status, clinical progression and re- assessment by fellow clinical providers in the ED. Further treatment and workup at subsequent clinical providers discretion. Patient/guardian urged not to elope from the ED as their condition may be serious if not clinically assessed and managed. Initial orders include: labs, urine, zofran
[2020-11-17 17:23] LABS: Alanine Aminotransferase 21 units/L (7-56); Albumin 4.8 g/dL (3.9-5); BUN/Creatinine Ratio 16; Blood Urea Nitrogen 19 mg/dL (9-20); Calcium 9.7 mg/dL (8.4-10.2); Hemolysis Index 16
[2020-11-17 17:28] LABS: Basophils % (Auto) 0.5 % (0.0-1.8); Hematocrit 51.9 % (35.5-45.6); Hemoglobin 17.9 gm/dl (11.8-15.2); Lymphocytes # (Auto) 0.9 K/mm3 (1.2-5.4); Lymphocytes % (Auto) 26.7 % (13.4-35.0); Mean Corpuscular HGB Conc 34 % (32-34); Mean Corpuscular Volume 97 fl (84-94); Monocytes # (Auto) 0.5 K/mm3 (0.0-0.8); Monocytes % (Auto) 13.5 % (0.0-7.3); Platelet Count 193 K/mm3 (140-440); Red Blood Count 5.33 M/mm3 (3.65-5.03); Red Cell Distribution Width 13.3 % (13.2-15.2)
--- NOTE | 2020-11-17 19:44 | Emergency Department Report ---
ED N/V/D HPI - General Chief complaint: Nausea/Vomiting/Diarrhea Stated complaint: VOMITING Time Seen by Provider: 11/17/20 16:13 Source: patient Mode of arrival: Ambulatory Limitations: No Limitations - History of Present Illness Initial comments: Patient is a 50-year-old -[place] male with no past medical history presents to the ED with complaint of acute onset persistent diffuse abdominal pain, nausea and vomiting with diarrhea last 24 hours intermittently. Patient states that he may have consumed spoiled food over 24 hours ago onset having the symptoms persistently 24 hours ago, worse in the last 12 hours. Patient states that he has several to 6 or 7 episodes of nausea and vomiting and diarrhea. Patient states that no one else at home is had similar symptoms. Patient denies dizziness, syncope, fever, chills, chest pain or shortness of breath, cough, sore throat, nasal and sinus congestion, dysuria, urinary frequency and urgency, testicular pain or penile discharge. MD complaint: nausea, vomiting, diarrhea, abdominal pain (diffuse) -: Sudden, hour(s) (24) Description of Vomiting: watery, bilious Description of Diarrhea: water Associated Abdominal Pain: Yes (diffuse) Location: diffuse Radiation: none Severity: moderate Pain Scale: 4 Quality: cramping, aching Consistency: intermittent Improves with: none Worsens with: eating, vomiting Context: possible food poisoning Associated Symptoms: denies other symptoms, loss of appetite, malaise, nausea /vomiting. denies: myalgias, chest pain, cough, diaphoresis, fever/chills, headaches, rash, dysuria, shortness of breath, syncope, weakness, other - Related Data Previous Rx's Medication Instructions Recorded Last Taken Type Dicyclomine [Bentyl] 10 mg PO QID PRN #20 capsule 07/23/18 Unknown Rx Famotidine [Pepcid] 20 mg PO BID #60 tablet 07/23/18 Unknown Rx Metoclopramide [Reglan] 10 mg PO QID PRN #30 tablet 07/23/18 Unknown Rx Promethazine [Phenergan SUPPOS] 50 mg VT Q6H PRN #15 supp.rect 07/23/18 Unknown Rx Ciprofloxacin HCl [Ciprofloxacin 500 mg PO Q12HR 7 Days #14 tab 10/20/18 Unknown Rx TAB] metroNIDAZOLE [Flagyl] 500 mg PO Q8HR 7 Days #21 tablet 10/20/18 Unknown Rx Promethazine [Phenergan] 25 mg PO Q6HR PRN #10 tab 02/24/19 Unknown Rx Famotidine [Pepcid] 20 mg PO BID #60 tablet 11/17/20 Unknown Rx Ondansetron [Zofran ODT TAB] 4 mg PO Q6HR PRN #20 tab.rapdis 11/17/20 Unknown Rx Dicyclomine [Bentyl] 20 mg PO Q6H PRN #30 tablet 11/18/20 Unknown Rx Allergies Allergy/AdvReac Type Severity Reaction Status Date / Time No Known Allergies Allergy Verified 11/17/20 15:32 ED Review of Systems ROS: Stated complaint: VOMITING Other details as noted in HPI Constitutional: chills, malaise, weakness. denies: fever Eyes: denies: eye pain, eye discharge, vision change ENT: denies: ear pain, throat pain Respiratory: denies: cough, shortness of breath, wheezing Cardiovascular: denies: chest pain, palpitations Endocrine: no symptoms reported Gastrointestinal: abdominal pain (diffuse), nausea, vomiting, diarrhea Genitourinary: denies: urgency, dysuria Musculoskeletal: denies: back pain, joint swelling, arthralgia Skin: denies: rash, lesions Neurological: denies: headache, weakness, paresthesias Psychiatric: denies: anxiety, depression Hematological/Lymphatic: denies: easy bleeding, easy bruising ED Past Medical Hx - Past Medical History Previous Medical History?: No - Surgical History Past Surgical History?: No - Social History Smoking Status: Never Smoker Substance Use Type: Marijuana - Medications Home Medications: Home Medications Medication Instructions Recorded Confirmed Last Taken Type Dicyclomine [Bentyl] 10 mg PO QID PRN #20 capsule 07/23/18 Unknown Rx Famotidine [Pepcid] 20 mg PO BID #60 tablet 07/23/18 Unknown Rx Metoclopramide [Reglan] 10 mg PO QID PRN #30 tablet 07/23/18 Unknown Rx Promethazine [Phenergan SUPPOS] 50 mg VT Q6H PRN #15 supp.rect 07/23/18 Unknown Rx Ciprofloxacin HCl [Ciprofloxacin 500 mg PO Q12HR 7 Days #14 tab 10/20/18 Unknown Rx TAB] metroNIDAZOLE [Flagyl] 500 mg PO Q8HR 7 Days #21 tablet 10/20/18 Unknown Rx Promethazine [Phenergan] 25 mg PO Q6HR PRN #10 tab 02/24/19 Unknown Rx Famotidine [Pepcid] 20 mg PO BID #60 tablet 11/17/20 Unknown Rx Ondansetron [Zofran ODT TAB] 4 mg PO Q6HR PRN #20 tab.rapdis 11/17/20 Unknown Rx Dicyclomine [Bentyl] 20 mg PO Q6H PRN #30 tablet 11/18/20 Unknown Rx ED Physical Exam - General Limitations: No Limitations General appearance: alert, in no apparent distress - Head Head exam: Present: atraumatic, normocephalic, normal inspection - Eye Eye exam: Present: normal appearance, PERRL, EOMI Pupils: Present: normal accommodation - ENT ENT exam: Present: normal exam, normal orophraynx, mucous membranes moist, TM's normal bilaterally, normal external ear exam - Neck Neck exam: Present: normal inspection, full ROM - Respiratory Respiratory exam: Present: normal lung sounds bilaterally. Absent: respiratory distress, wheezes, rales, rhonchi, chest wall tenderness, accessory muscle use, decreased breath sounds, prolonged expiratory - Cardiovascular Cardiovascular Exam: Present: normal rhythm, bradycardia, normal heart sounds. Absent: systolic murmur, diastolic murmur, rubs, gallop - GI/Abdominal GI/Abdominal exam: Present: soft, tenderness (Palpable mild diffuse abdominal tenderness), hyperactive bowel sounds. Absent: guarding, rebound, rigid, hypoactive bowel sounds - Extremities Exam Extremities exam: Present: normal inspection, full ROM, normal capillary refill - Back Exam Back exam: Present: normal inspection, full ROM. Absent: tenderness, CVA tenderness (R), CVA tenderness (L), muscle spasm, paraspinal tenderness, vertebral tenderness, rash noted - Neurological Exam Neurological exam: Present: alert, oriented X3, CN II-XII intact, normal gait, reflexes normal - Psychiatric Psychiatric exam: Present: normal affect, normal mood - Skin Skin exam: Present: warm, dry, intact, normal color. Absent: rash ED Course Vital Signs 11/17/20 11/17/20 11/17/20 15:33 20:22 20:30 Temperature 98.9 F Pulse Rate 53 L 44 L 45 L Respiratory 20 20 16 Rate Blood Pressure 146/84 O2 Sat by Pulse 100 99 99 Oximetry 11/17/20 11/17/20 11/17/20 20:48 21:00 21:16 Temperature Pulse Rate 48 L 48 L 47 L Respiratory 18 17 Rate Blood Pressure 106/62 96/58 106/62 O2 Sat by Pulse 99 97 98 Oximetry 11/17/20 11/17/20 11/17/20 21:30 21:46 22:00 Temperature Pulse Rate 48 L 47 L 52 L Respiratory 18 16 17 Rate Blood Pressure 109/67 109/67 93/55 O2 Sat by Pulse 98 99 98 Oximetry 11/17/20 11/17/20 11/17/20 22:16 22:30 22:46 Temperature Pulse Rate 51 L 49 L 47 L Respiratory 18 18 23 Rate Blood Pressure 93/55 102/61 102/61 O2 Sat by Pulse 98 98 96 Oximetry 11/17/20 23:00 Temperature Pulse Rate 48 L Respiratory 19 Rate Blood Pressure 111/69 O2 Sat by Pulse 95 Oximetry ED Medical Decision Making - Lab Data Result diagrams: 11/17/20 16:38 11/17/20 16:38 - Radiology Data Radiology results: report reviewed, image reviewed [facility] [address] [place] [address] Cat Scan Report Signed Patient: YAMILETH BECKFORD MR#: [id number] : 1970 Acct:[id number] Age/Sex: 50 / M ADM Date: 11/17/20 Loc: ED Attending Dr: Ordering Physician: BENJAMIN LAYTON Date of Service: 11/17/20 Procedure(s): CT abdomen pelvis w con Accession Number(s): [id number] cc: BENJAMIN LAYTON CT ABDOMEN AND PELVIS WITH CONTRAST INDICATION / CLINICAL INFORMATION: RLQ abdominal pain [id number] 100ml. TECHNIQUE: Axial CT images were obtained through the abdomen and pelvis after 100 mL's of Omnipaque [address] scans at this location are performed using CT dose reduction for ALARA by means of automated exposure control. COMPARISON: None available. FINDINGS: LOWER CHEST: No significant abnormality. AORTA / ARTERIES: Mild atherosclerotic calcification without acute abnormality. IVC / VEINS: No significant abnormality. LYMPH NODES: No significant adenopathy. COLON: No significant abnormality. APPENDIX: No significant abnormality. STOMACH / SMALL BOWEL: No significant abnormality. PERITONEUM: No free fluid. No free air. No fluid collection. LIVER: There are multiple hypoattenuating lesions scattered throughout the liver with the majority of the lesions measuring less than 1 cm which are too small for complete characterization and likely represent simple hepatic cysts. GALLBLADDER: No significant abnormality. BILE DUCTS: No significant abnormality. PANCREAS: There is mild prominence of the pancreatic duct without evidence of a pancreatic mass. SPLEEN: No significant abnormality. ADRENALS: No significant abnormality. RIGHT KIDNEY / URETER: No significant abnormality. LEFT KIDNEY / URETER: No significant abnormality. URINARY BLADDER: No significant abnormality. REPRODUCTIVE ORGANS: No significant abnormality. SKELETAL SYSTEM: No significant abnormality. ADDITIONAL FINDINGS: None. IMPRESSION: 1. Prominence of the pancreatic duct without clear etiology. Patient may benefit from MRCP for further evaluation. Correlate for possible chronic pancreatitis. 2. Incidentally noted liver cysts. Signer Name: Judah Fernandez DO Signed: 11/17/2020 9:10 PM Workstation Name: [id number] Transcribed By: MILDRED Dictated By: JUDAH FERNANDEZ DO Electronically Authenticated By: JUDAH FERNANDEZ DO Signed Date/Time: 11/17/202109 DD/ 03 TD/TT: - Medical Decision Making This is a 50-year-old -[place] male with no past medical history presents to the ED with complaint of acute onset persistent diffuse abdominal pain, nausea and vomiting with diarrhea last 24 hours intermittently. Patient states that he may have consumed spoiled food over 24 hours ago onset having the symptoms persistently 24 hours ago, worse in the last 12 hours. Patient states that he has several to 6 or 7 episodes of nausea and vomiting and diarrhea. Patient states that no one else at home is had similar symptoms. In the ED, patient is alert and oriented x3 and is not in any distress. Patient is hemodynamically stable. Lab test results were reviewed and are all nonactionable including lipase levels. Patient was treated for pain, also treated for nausea and vomiting and also given antacids. Patient also received normal saline 1 L IV bolus x1. Abdomen pelvis CT scan with contrast showed prominence of the pancreatic duct without clear etiology. Patient may benefit from MRCP for further evaluation. Correlate for possible chronic pancreatitis. On reevaluation, patient's pain is well controlled medications. Patient has not had any nausea or vomiting while in the ED and passed oral fluid challenge in the ED. Patient was therefore discharged home on pain medications, antiemetics and antacids and was advised to follow-up with his primary care physician in 5 to 7 days for reevaluation. Patient was also referred to the [place] extension service agent for follow-up in the next 5 to 7 days. Patient is advised to contact [place] [facility] service agent to schedule a follow-up appointment. Patient was otherwise advised return to the ED immediately if symptoms get worse. - Differential Diagnosis Gastroenteritis; dehydration; GERD; gastritis; pancreatitis; cholelithiasis Critical care attestation.: If time is entered above; I have spent that time in minutes in the direct care of this critically ill patient, excluding procedure time. ED Disposition Clinical Impression: Nausea, vomiting and diarrhea, Viral gastroenteritis Disposition: 01 HOME / SELF CARE / HOMELESS Is pt being admited?: No Does the pt Need Aspirin: No Condition: Stable Instructions: Viral Gastroenteritis, Adult, [id number], Nausea and Vomiting, Adult, [id number], Diarrhea, Adult, [id number] Additional Instructions: All lab test results were reviewed and are all nonactionable. Abdomen pelvis CT scan without contrast showed no acute abnormalities except for a prominence of the pancreatic duct without clear etiology. Your symptoms are likely due to a viral syndrome due to gastroenteritis. Therefore maintain a clear liquid diet for 12 to 24 hours, drink plenty of fluids, take medication as advised for nausea and vomiting and abdominal pain. Follow-up with your GI physician Dr. Jovana Betts of [place] [facility] for further evaluation in 3 to 5 days for reevaluation. Return to the ED immediately if symptoms get worse, otherwise follow-up with your primary care physician in 5 to 7 days for reevaluation. Prescriptions: Dicyclomine [Bentyl] 20 mg PO Q6H PRN #30 tablet PRN Reason: Abdominal pain Famotidine [Pepcid] 20 mg PO BID #60 tablet Ondansetron [Zofran ODT TAB] 4 mg PO Q6HR PRN #20 tab.rapdis PRN Reason: Vomiting Referrals: [facility] [Provider Group] - 3-5 Days JOVANA BETTS MD [Staff Physician] - 3-5 Days Forms: Work/School Release Form(ED) Time of Disposition: 19:41 Print Language: CHINESE
[2020-11-17] MEDS ORDERED: ONDANSETRON 4 MG ODT TAB PO ONE (19:46)
[2020-11-17] MEDS ORDERED: FAMOTIDINE 20 MG TAB PO ONE (19:46)
[2020-11-17] MEDS ORDERED: SODIUM CHLORIDE 0.9% 1000 ML 1,000 ML IV ONE (19:51)
[2020-11-17] MEDS ORDERED: FAMOTIDINE 20 MG/2 ML INJ IV ONE (19:51)
[2020-11-17] MEDS ORDERED: ONDANSETRON 4 MG/2 ML INJ IV ONE (19:51)
[2020-11-17] MEDS ORDERED: MORPHINE 4 MG/1 ML INJ IV ONE (19:51)
--- NOTE | 2020-11-17 21:15 | Cat Scan Report ---
CT ABDOMEN AND PELVIS WITH CONTRAST INDICATION / CLINICAL INFORMATION: RLQ abdominal pain [id number] 100ml. TECHNIQUE: Axial CT images were obtained through the abdomen and pelvis after 100 mL's of Omnipaque [address] scans at this location are performed using CT dose reduction for JACQUELINE reid of automated exposure control. COMPARISON: None available. FINDINGS: LOWER CHEST: No significant abnormality. AORTA / ARTERIES: Mild atherosclerotic calcification without acute abnormality. IVC / VEINS: No significant abnormality. LYMPH NODES: No significant adenopathy. COLON: No significant abnormality. APPENDIX: No significant abnormality. STOMACH / SMALL BOWEL: No significant abnormality. PERITONEUM: No free fluid. No free air. No fluid collection. LIVER: There are multiple hypoattenuating lesions scattered throughout the liver with the majority of the lesions measuring less than 1 cm which are too small for complete characterization and likely re present simple hepatic cysts. GALLBLADDER: No significant abnormality. BILE DUCTS: No significant abnormality. PANCREAS: There is mild prominence of the pancreatic duct without evidence of a pancreatic mass. SPLEEN: No significant abnormality. ADRENALS: No significant abnormality. RIGHT KIDNEY / URETER: No significant abnormality. LEFT KIDNEY / URETER: No significant abnormality. URINARY BLADDER: No significant abnormality. REPRODUCTIVE ORGANS: No significant abnormality. SKELETAL SYSTEM: No significant abnormality. ADDITIONAL FINDINGS: None. IMPRESSION: 1. Prominence of the pancreatic duct without clear etiology. Patient may benefit from MRCP for furthe r evaluation. Correlate for possible chronic pancreatitis. 2. Incidentally noted liver cysts. Signer Name: Judah Alicia DO Signed: 11/17/2020 9:10 PM Workstation Name: [id number]
[2020-11-17 23:10] VITALS: BP 111/69
== END 2020-11-18 01:00 | disposition home or self-care (01) ==
LOC: ED 14:27
DX: A08.4 Viral intestinal infection, unspecified (principal); R11.2 Nausea with vomiting, unspecified; R19.7 Diarrhea, unspecified; F12.90 Cannabis use, unspecified, uncomplicated; Z79.899 Other long term (current) drug therapy
CPT/HCPCS: 36415; 74177; 80053; 83690; 85025; 96361; 96372; 96374; 96375; 99284; J2270; J2405; J7030; Q9967